=== PATIENT | male | born 1975 | race Caucasian/White ===

== ENCOUNTER 2023-02-24 03:53 | Emergency (ER) | payer BC ==
[~2023-02-24] VITALS: Ht 176.5 cm; Wt 81.6 kg
[2023-02-24 03:54] VITALS: BP_SYST 124
--- NOTE | 2023-02-24 03:54 | NUR ---
Patient triaged and placed back to the [facility]. Vital signs updated, denied any acute distress at this time. Instructed to notify ED staff for any changes in condition or worsening of symptoms. Patient verbalized understanding.
--- NOTE | 2023-02-24 04:00 | NUR ---
Dr. Wu at bedside examining the patient.
--- NOTE | 2023-02-24 04:51 | NUR ---
Pt C/O chest pain EKG completed and given to MD Pt resting comfortably in bed NAD AOX4 VSS Able to make needs known Will continue to monitor
[2023-02-24 05:50] LABS: ANION GAP 6 (5-15); CALCIUM 8.7 mg/dL (8.4-11.0); CHLORIDE 105 mmol/L (98-107); CREATININE 0.87 mg/dL (0.55-1.30); GFR AFRICAN AMERICAN 121 mL/min (>90); GLUCOSE 94 mg/dL (70-99); UREA NITROGEN, BLOOD 17 mg/dL (8-21)
[2023-02-24 05:51] LABS: BASOPHILS # (AUTO) 0.1 K/uL (0.0-0.2); BASOPHILS % (AUTO) 0.7 % (0.0-2.0); EOSINOPHILS # (AUTO) 0.4 K/uL (0.0-0.4); EOSINOPHILS % (AUTO) 5.1 % (0.0-4.0); HEMATOCRIT 45.8 % (36-54); HEMOGLOBIN 15.2 g/dL (14.0-18.0); LYMPHOCYTES # (AUTO) 1.8 K/uL (1.0-5.5); LYMPHOCYTES % (AUTO) 22.5 % (20.5-51.5); MEAN CORPUSCULAR HEMOGLOBIN 31 pg (27-31); MEAN CORPUSCULAR HGB CONC 33 % (32-36); MEAN CORPUSCULAR VOLUME 95 fL (79.0-98.0); MONOCYTES # (AUTO) 0.8 K/uL (0.0-1.0); MONOCYTES % (AUTO) 9.5 % (1.7-9.3); NEUTROPHILS # (AUTO) 5.1 K/uL (1.8-7.7); NEUTROPHILS % (AUTO) 62.2 % (40.0-70.0); PLATELET COUNT (AUTO) 243 K/uL (130-430); RED BLOOD CELL COUNT(AUTO) 4.85 MIL/uL (4.2-6.2); RED CELL DISTRIBUTION WIDTH 13.2 % (9.0-15.0); WHITE BLOOD COUNT (AUTO) 8.2 K/uL (4.8-10.8)
[2023-02-24 05:58] LABS: ALANINE AMINOTRANSFERASE 24 U/L (12-78); ALBUMIN 3.6 g/dL (3.4-4.8); ASPARTATE AMINOTRANSFERASE 18 U/L (10-37); TOTAL BILIRUBIN 0.3 mg/dL (0.0-1.0)
[2023-02-24 09:44] LABS: ACETAMINOPHEN < 1 ug/mL (1-30); ALCOHOL, BLOOD < 3 mg/dL (<10)
--- NOTE | 2023-02-24 09:44 | NUR ---
AQUIRED [facility] AND PROVIDE PT WITH CEREAL AND JELLO.
[2023-02-24 11:58] LABS: BARBITURATE, URINE NEGATIVE (NEG <=200); BENZODIAZEPINE, URINE NEGATIVE (NEG <=150); COCAINE, URINE NEGATIVE (NEG <=150); METHAMPHETAMINES SCREEN,URINE POSITIVE (NEG <=500); OPIATE, URINE NEGATIVE (NEG <=100); PHENCYCLIDINE SCREEN,URINE NEGATIVE (NEG <=25); UR TRICYCLIC ANTIDEPRESSANTS NEGATIVE (NEG <=300); URINE AMPHETAMINE POSITIVE (NEG <=500); URINE METHADONE NEGATIVE (NEG <=200); URINE OXYCODONE SCREEN NEGATIVE (NEG <=100); URINE PROPOXYPHENE SCREEN NEGATIVE (NEG <=300)
[2023-02-24 12:00] LABS: CANNABINOID, URINE POSITIVE (NEG <=50)
--- NOTE | 2023-02-24 15:45 | NUR ---
REPORT GIVEN TO PSYCE DR PACHECO OVER THE PHONE. PT IN CONSULT WITH PSYC DR TRUJILLO VIA ZOOM ON IPAD.
--- NOTE | 2023-02-24 16:35 | NUR ---
Senior Online Marketing Manager re: homelessness Met with patient in the ED this afternoon to discuss his recent consult regarding homelessness. Prior to meeting with patient, I spoke with AI Caballero who indicated the patient has the PET team coming out to see him because of statements he made to the drAmauri regarding self harm. I advised the nurse that I will address his homelessness and mental health needs. The patient is alert and lethargic. I introduced myself to him and explained why I was at bedside to speak with him. He rolled over and sat up and indicated he was in agreement to speaking to me. The patient states he is homeless and stays in the "[facility]". The patient states he has been residing in the area for a few months. He states he has random support with "friends near me". I inquired about how he is currently feeling, and the patient states he is feeling "ok because the pain has gone away". I inquired about his thoughts and the patient stated he was fine. I asked if he has thoughts of self harm to himself or others and he stated no never. I inquired about his conversation with the drAmauri this morning; I asked the patient about his statement of self harm regarding himself and others and the patient stated, I don't believe that is what I said. I asked him what he did say, and he stated, "the drAmauri asked if I was suicidal and I said yes." The patient went on to indicate he didn't mean it that way, but he was in a lot of pain. I asked if he has recurrent thoughts of suicide or self harm to himself or others and the patient stated no and shook his head no. I inquired on the patient's willingness to speak to a therapist via a telepsyche visit today prior to his discharge from the hospital. The patient stated he would speak with the telepsyche dr. Prior to leaving his bedside I provided the patient with resources related to homelessness. I offered information on housing services, food hope, and local [facility] that he can receive both mental health and medical care for. I inquired about his need for a pair of weather appropriate clothing and he declined. I asked about food to leave with and he indicated he did not need food as he just ate. Upon finishing with the patient, I met with AI Caballero again. I advised him of my conversation with the patient regarding his mental state. I informed him of what the patient said and meant. I informed him that he was interested and willing to speak with a telepsyche. The nurse indicted he would get a telepsyche in place for the patient and call off the PET team. I later received a call from Dr. Dominguez who advised that the patient is cleared for discharge, but to please bring the patient resources on rehab centers. I went to the ED to provide the patient with rehab resources, however he was no longer present.
[2023-02-24 16:37] VITALS: BP_SYST 124
--- NOTE | 2023-02-24 16:38 | NUR ---
Patient given written and verbal discharge instructions and verbalizes understanding. ER MD discussed with patient the results and treatment provided. Patient in stable condition. ID arm band removed. NO Rx given. Patient educated on pain management and to follow up with PMD. Pain Scale 0/10. Opportunity for questions provided and answered. Medication side effect fact sheet provided.
== END 2023-02-24 16:38 | disposition home or self-care (01) ==
LOC: SED 03:53
DX: R07.89 Other chest pain (principal); F17.200 Nicotine dependence, unspecified, uncomplicated; F15.10 Other stimulant abuse, uncomplicated; Z59.00 Homelessness unspecified; Z79.899 Other long term (current) drug therapy; Z20.822 Contact with and (suspected) exposure to COVID-19
CPT/HCPCS: 99285; 71250; 71045; 87426; 80307; 80053; 82550; 85025; 84484; 36415; 93005; 76376; G0482; G0480; G0481

== ENCOUNTER 2023-11-05 15:44 | Emergency (ER) | payer OTHER, BC ==
[~2023-11-05] VITALS: Ht 175.3 cm; Wt 63.5 kg
[2023-11-05 15:50] VITALS: BP_SYST 117; PULSE 112; RESP 20; TEMP 97.6; O2SAT 97
[2023-11-05 17:25] LABS: HEMATOCRIT 45.4 % (36-54); HEMOGLOBIN 16.1 g/dL (14.0-18.0); MEAN CORPUSCULAR HEMOGLOBIN 32 pg (27-31); MEAN CORPUSCULAR HGB CONC 35 % (32-36); MEAN CORPUSCULAR VOLUME 92 fL (79.0-98.0); PLATELET COUNT (AUTO) 241 K/uL (130-430); RED BLOOD CELL COUNT(AUTO) 4.96 MIL/uL (4.2-6.2); RED CELL DISTRIBUTION WIDTH 12.7 % (9.0-15.0); WHITE BLOOD COUNT (AUTO) 6.4 K/uL (4.8-10.8)
[2023-11-05 17:26] LABS: ALBUMIN 2.6 g/dL (3.4-4.8); BILIRUBIN,DIRECT 0.1 mg/dL (0.0-0.3); CALCIUM 8.1 mg/dL (8.4-11.0); CREATININE 1.03 mg/dL (0.55-1.30); TOTAL BILIRUBIN 0.4 mg/dL (0.0-1.0); TOTAL PROTEIN, SERUM 6.7 g/dL (6.4-8.3)
[2023-11-05 17:28] LABS: POTASSIUM 2.8 mmol/L (3.5-5.1)
[2023-11-05] MEDS ORDERED: POTASSIUM CHLORIDE 20 MEQ TABLET.ER PO ONE (17:45)
[2023-11-05 19:00] LABS: BAND % (MANUAL) 42 % (0-6); BASOPHILS % (MANUAL) 0 % (0-2); EOSINOPHILS % (MANUAL) 0 % (0-7); LYMPHOCYTES % (MANUAL) 14 % (20-46); MONOCYTES % (MANUAL) 10 % (0-11); PLATELET ESTIMATE ADEQUATE (ADEQUATE)
[2023-11-05 19:01] LABS: TEAR DROP CELLS FEW
== END 2023-11-05 19:37 | disposition left against medical advice (07) ==
LOC: SED 15:44
DX: K52.9 Noninfective gastroenteritis and colitis, unspecified (principal); I87.8 Other specified disorders of veins; R10.9 Unspecified abdominal pain; Z79.899 Other long term (current) drug therapy
CPT/HCPCS: 36415; 76376; 80048; 80076; 83690; 85007; 85027; 99284